=== PATIENT | male | born 1940 | race Caucasian/White ===

== ENCOUNTER 2019-05-23 21:51 | Observation (INO) | payer MEDICARE ==
[2019-05-23 22:00] VITALS: RESP 18
[2019-05-23] MEDS ORDERED: NITROGLYCERIN SL TABS 0.4 MG TAB SUBLINGUAL PRN (22:07)
--- NOTE | 2019-05-23 22:19 | ED ---
Chest Pain HPI - General Chief Complaint: Chest Pain Stated Complaint: cardiac issue-transfer Time Seen by Provider: 05/23/19 21:56 Source: patient, EMS, RN notes reviewed, old records reviewed Mode of arrival: EMS - History of Present Illness Initial Comments: This is a 78-year-old male here for evaluation patient is safe for evaluation regards to chest pain. Patient reports his chest pain with history of CAD patient currently has well-controlled chest pain. No recent travel history or sick contacts. No fever cough or congestion. Patient originally presented to [facility] and transferred to Hospital for evaluation MD Complaint: chest pain -: days(s) Pain Location: left chest Pain Radiation: LUE Severity: mild Quality: tightness, heaviness Consistency: constant Improves With: nothing Worsens With: nothing Anginal Symptoms: nausea Other Symptoms: cough, palpitations Treatments Prior to Arrival: none Review of Systems ROS Statement: Those systems with pertinent positive or pertinent negative responses have been documented in the HPI. ROS Other: All systems not noted in ROS Statement are negative. Past Medical History Past Medical History: Diabetes Mellitus, Hypertension History of Any Multi-Drug Resistant Organisms: None Reported Past Surgical History: Heart Catheterization With Stent, Hernia Repair Past Psychological History: No Psychological Hx Reported Smoking Status: Never smoker Past Alcohol Use History: None Reported Past Drug Use History: None Reported General Exam General appearance: alert, in no apparent distress Head exam: Present: atraumatic, normocephalic, normal inspection Eye exam: Present: normal appearance, PERRL, EOMI. Absent: scleral icterus, conjunctival injection, periorbital swelling ENT exam: Present: normal exam, mucous membranes moist Neck exam: Present: normal inspection. Absent: tenderness, meningismus, lymphadenopathy Respiratory exam: Present: normal lung sounds bilaterally. Absent: respiratory distress, wheezes, rales, rhonchi, stridor Cardiovascular Exam: Present: regular rate, normal rhythm, normal heart sounds. Absent: systolic murmur, diastolic murmur, rubs, gallop, clicks GI/Abdominal exam: Present: soft, normal bowel sounds. Absent: distended, tenderness, guarding, rebound, rigid Extremities exam: Present: normal inspection, full ROM, normal capillary refill. Absent: tenderness, pedal edema, joint swelling, calf tenderness Back exam: Present: normal inspection Neurological exam: Present: alert, oriented X3, CN II-XII intact Psychiatric exam: Present: normal affect, normal mood Skin exam: Present: warm, dry, intact, normal color. Absent: rash Course Vital Signs 05/23/19 05/23/19 21:53 22:00 Temperature 98.1 F Pulse Rate 59 L Pulse Rate [ 56 L Case Fitter ] Respiratory 18 Rate Blood Pressure 140/79 O2 Sat by Pulse 95 Oximetry - Reevaluation(s) Reevaluation #1: 05/23/19 22:17 Medical records reviewed as well as transfer paperwork is reviewed - Consultations Consultation #1: With Dr. Steiner for [facility] She was agreeable for admission Chest Pain MDM - MDM 78 mL to the ER for evaluation patient with today's exception in transfer for cardiac observation. Will be admitted for cardiology evaluation Disposition Clinical Impression: Chest pain Disposition: ADMITTED IP TO THIS HOSP Condition: Undetermined Instructions (If sedation given, give patient instructions): Chest Pain (ED) Is patient prescribed a controlled substance at d/c from ED?: No Referrals: Ang Anaya MD [Primary Care Provider] - 1-2 days
[2019-05-23] MEDS ORDERED: NON FORMULARY DRUG (Ubidecarenone [Co Q-10] 100 MG) PO SCH (23:45)
[2019-05-23] MEDS: metFORMIN 500 MG TAB PO SCH (23:51)
[2019-05-24 04:51] LABS: Cholesterol 99 mg/dL (<200); HDL Cholesterol 27 mg/dL (40-60); LDL Cholesterol,Calculated 42 mg/dL (0-99); Triglycerides 152 mg/dL (<150)
[2019-05-24 08:01] LABS: Glucose,Whole Blood 104 mg/dL (75-99)
--- NOTE | 2019-05-24 08:24 | P.CRDCN ---
History of Present Illness Consult reason: chest pain History of present illness: This is Dr. Bach dictating a consult on this patient The patient was interviewed and examined by me IMPRESSION / ASSESSMENT: Severe precordial chest discomfort lasting for several hours, normal cardiac enzymes serially, transferred from [facility] ER Pain was relieved with a combination of morphine and nitroglycerin but it took a while to resolve ECG shows [address] elevation inferolaterally consistent with an early re polarization abnormality, serial ECGs unchanged Hypertension Diabetes Coronary artery disease status post coronary stenting in 2011 at which time he had upper back pain No evidence for aortic dissection at this time on computed tomography scan PLAN: Continue antiplatelet therapy statins antihypertensive therapy and diabetes medications Exercise Cardiolite stress test tomorrow Hold beta blockers tomorrow morning HPI Patient presented to the hospital at [facility] complaining of severe midsternal chest discomfort that started when he was working in his garage and he was not doing anything strenuous. The pain lingered on was nonradiating and lasted for several hours before it was finally relieved with medications in the ER No loss of consciousness dizziness no tiredness or fatigue no undue shortness of breath ROS: No fever chills or rigors, no cough, phlegm or expectoration, no nausea, vomiting or diarrhea, no hematuria, dysuria, no musculoskeletal complaints, no strokes or seizures, no skin lesions. EXAMINATION: Normal heart rate and blood pressure, afebrile Breath sounds are clear no rhonchi no crackles Normal heart sounds normal S1 normal S2 no murmurs or gallop. Abdomen soft nontender Extremity is warm no edema No JVD REVIEW OF LABS, ECG & MEDICAL DATA Serial cardiac enzymes are normal LDL 42 triglycerides 152 HDL 27 Normal hemoglobin Past Medical History Past Medical History: Diabetes Mellitus, Hypertension History of Any Multi-Drug Resistant Organisms: None Reported Past Surgical History: Heart Catheterization With Stent, Hernia Repair Past Anesthesia/Blood Transfusion Reactions: No Reported Reaction Date of Last Stent Placement:: 2011 Smoking Status: Never smoker - Past Family History Mother Additional Family Medical History / Comment(s): melonoma, from Father Additional Family Medical History / Comment(s): Had a bad heart Medications and Allergies Home Medications Medication Instructions Recorded Confirmed Type Allopurinol [Zyloprim] 300 mg PO DAILY 05/23/19 05/23/19 History Aspirin EC [Ecotrin Low Dose] 81 mg PO HS 05/23/19 05/23/19 History Atorvastatin [Lipitor] 10 mg PO HS 05/23/19 05/23/19 History Bisoprolol/Hydrochlorothiazide 1 tab PO DAILY 05/23/19 05/23/19 History [Bisoprolol-Hctz 2.5-6.25 mg Tb] Erythromycin [Braden-Tab] 250 mg PO QID 05/23/19 05/23/19 History Ketoconazole 2% Cream [Nizoral 2%] 1 applic TOPICAL BID PRN 05/23/19 05/23/19 History Lisinopril 20 mg PO DAILY 05/23/19 05/23/19 History [place]-3 Fatty Acids/Fish Oil [Fish 1 cap PO DAILY 05/23/19 05/23/19 History Oil 1,000 mg Softgel] Propylene Glycol/Peg 400 [Systane 1 drop BOTH EYES BID 05/23/19 05/23/19 History Ultra 0.4-0.3% Eye Drp] Ubidecarenone [Co Q-10] 100 mg PO HS 05/23/19 05/23/19 History metFORMIN HCL 500 mg PO BID 05/23/19 05/23/19 History Allergies Allergy/AdvReac Type Severity Reaction Status Date / Time No Known Allergies Allergy Unverified 05/23/19 22:17 Physical Exam Vitals: Vital Signs Temp Pulse Pulse Pulse Resp BP BP 05/24/19 07:38 05/24/19 07:26 97.4 F L 56 L 18 128/66 05/24/19 04:00 97.6 F 54 L 18 111/52 05/24/19 00:00 18 05/23/19 23:43 97.6 F 55 L 18 173/73 05/23/19 22:00 56 L 05/23/19 21:53 98.1 F 59 L 18 140/79 Pulse Ox 05/24/19 07:38 96 05/24/19 07:26 95 05/24/19 04:00 95 05/24/19 00:00 05/23/19 23:43 95 05/23/19 22:00 05/23/19 21:53 95 Intake and Output 05/23/19 05/24/19 05/24/19 22:59 06:59 14:59 Other: # Voids 1 Weight 68.039 kg 68.039 kg Results Cardiac Enzymes 05/23/19 05/24/19 Range/Units 23:00 04:11 Troponin I <0.012 <0.012 (0.000-0.034) ng/mL Lipids 05/24/19 Range/Units 04:11 Triglycerides 152 H (<150) mg/dL Cholesterol 99 (<200) mg/dL HDL Cholesterol 27 L (40-60) mg/dL Current Medications Generic Name Dose Route Start Last Admin Trade Name Freq PRN Reason Stop Dose Admin Allopurinol 300 mg 05/24/19 09:00 Zyloprim PO DAILY [facility] Aspirin 325 mg 05/24/19 09:00 Aspirin PO DAILY [facility] Atorvastatin Calcium 80 mg 05/24/19 09:00 Lipitor PO DAILY [facility] Erythromycin Stearate 250 mg 05/24/19 09:00 Braden-Tab PO QID [facility] Lisinopril 20 mg 05/24/19 09:00 Zestril PO DAILY [facility] Metformin HCl 500 mg 05/23/19 23:45 05/23/19 23:51 Glucophage PO 500 mg BID [facility] Administration Metoprolol Tartrate 25 mg 05/24/19 09:00 Lopressor PO BID [facility] Nitroglycerin 0.4 mg 05/23/19 22:07 Nitrostat SUBLINGUAL Q5M PRN Chest Pain Non-Formulary Medication 1 drop 05/24/19 09:00 Propylene Glycol/Peg 400 [Systane Ultra 0.4-0.3% Eye Drp] BOTH EYES BID [facility] Intake and Output 05/23/19 05/24/19 05/24/19 22:59 06:59 14:59 Other: # Voids 1 Weight 68.039 kg 68.039 kg
[2019-05-24] MEDS: metFORMIN 500 MG TAB PO SCH ×2 (08:46→20:05)
[2019-05-24] MEDS: ATORVASTATIN 80 MG TAB PO SCH (08:46)
[2019-05-24] MEDS: METOPROLOL TARTRATE 25 MG TAB PO SCH ×2 (08:46→20:06)
[2019-05-24] MEDS: ASPIRIN 325 MG TAB PO SCH (08:46)
[2019-05-24] MEDS: LISINOPRIL 20 MG TAB PO SCH (08:46)
[2019-05-24] MEDS: ERYTHROMYCIN 250 MG TAB PO SCH ×4 (08:46→20:05)
[2019-05-24] MEDS: PEG BOTH EYES SCH ×2 (08:47→20:06)
[2019-05-24] MEDS: ALLOPURINOL 300 MG TAB PO SCH (08:47)
[2019-05-24] MEDS: PROPYLENE GLYCOL BOTH EYES SCH ×2 (08:47→20:06)
[2019-05-24] MEDS ORDERED: NON FORMULARY DRUG (Omega-3 Fatty Acids/Fish Oil [Fish Oil 1,000 Mg Softgel] 1 CAP) PO SCH (09:00)
[2019-05-24 11:41] LABS: Glucose,Whole Blood 141 mg/dL (75-99)
--- NOTE | 2019-05-24 15:01 | P.HPIM ---
History of Present Illness H&P Date: 05/24/19 Chief Complaint: Chest pain Mr. Spear is a 78-year-old male with a past medical history of hypertension, hyperlipidemia, type 2 diabetes mellitus, coronary artery disease status post stenting transferred from [facility] for evaluation of substernal chest pain. Patient states that he was having severe mid sternal chest pain that started when he was working in his garage. The pain was there for several hours, nonradiating, 6-8 out of 10, with mild difficulty in breathing. Patient denies having any cough or sick contacts. No fever chills or rigors. Patient denies having any headaches, blurring of vision or loss of consciousness. He denies having any dizziness. No orthopnea, PND or lower extremity swelling. Patient was transferred from [facility] as he was having ongoing chest pain. But currently the patient is chest pain-free, comfortably lying in bed. His is at the bedside. Review of Systems REVIEW OF SYSTEMS: PSYCH: no anxiety or depression NEURO:No c/o weakness of the extremties, No facial droop, No speech abnormalities. VASCULAR: no edema HEMATOLOGIC: No history of easy bleeding and bruising . No recent infections . RESPIRATORY: No cough, No SOB, No chest discomfort. IMMUNE: No infections INTEGUMENT: no rashes OPHTHALMOLOGIC: No blurry vision and no eye discharge : No dysuria or hematuria CARDIAC: As per HPI MUSCULOSKELETAL : No aches or pains in the joints or muscles. GI: No abdominal pain, Nausea or vomiting. No constipation or diarrhea. All 13 review of systems done and negative except for the ones mentioned above. Past Medical History Past Medical History: Diabetes Mellitus, Hypertension History of Any Multi-Drug Resistant Organisms: None Reported Past Surgical History: Heart Catheterization With Stent, Hernia Repair Past Anesthesia/Blood Transfusion Reactions: No Reported Reaction Date of Last Stent Placement:: 2011 Smoking Status: Never smoker - Past Family History Mother Additional Family Medical History / Comment(s): melonoma, from Father Additional Family Medical History / Comment(s): Had a bad heart Medications and Allergies Home Medications Medication Instructions Recorded Confirmed Type Allopurinol [Zyloprim] 300 mg PO DAILY 05/23/19 05/23/19 History Aspirin EC [Ecotrin Low Dose] 81 mg PO HS 05/23/19 05/23/19 History Atorvastatin [Lipitor] 10 mg PO HS 05/23/19 05/23/19 History Bisoprolol/Hydrochlorothiazide 1 tab PO DAILY 05/23/19 05/23/19 History [Bisoprolol-Hctz 2.5-6.25 mg Tb] Erythromycin [Braden-Tab] 250 mg PO QID 05/23/19 05/23/19 History Ketoconazole 2% Cream [Nizoral 2%] 1 applic TOPICAL BID PRN 05/23/19 05/23/19 History Lisinopril 20 mg PO DAILY 05/23/19 05/23/19 History [place]-3 Fatty Acids/Fish Oil [Fish 1 cap PO DAILY 05/23/19 05/23/19 History Oil 1,000 mg Softgel] Propylene Glycol/Peg 400 [Systane 1 drop BOTH EYES BID 05/23/19 05/23/19 History Ultra 0.4-0.3% Eye Drp] Ubidecarenone [Co Q-10] 100 mg PO HS 05/23/19 05/23/19 History metFORMIN HCL 500 mg PO BID 05/23/19 05/23/19 History Allergies Allergy/AdvReac Type Severity Reaction Status Date / Time No Known Allergies Allergy Unverified 05/23/19 22:17 Physical Exam Vitals: Vital Signs Temp Pulse Pulse Pulse Resp BP BP 05/24/19 12:00 58 L 18 05/24/19 11:46 97.6 F 58 L 18 151/77 05/24/19 08:00 56 L 18 05/24/19 07:38 05/24/19 07:26 97.4 F L 56 L 18 128/66 05/24/19 04:00 97.6 F 54 L 18 111/52 05/24/19 00:00 18 05/23/19 23:43 97.6 F 55 L 18 173/73 05/23/19 22:00 56 L 05/23/19 21:53 98.1 F 59 L 18 140/79 Pulse Ox 05/24/19 12:00 05/24/19 11:46 96 05/24/19 08:00 05/24/19 07:38 96 05/24/19 07:26 95 05/24/19 04:00 95 05/24/19 00:00 05/23/19 23:43 95 05/23/19 22:00 05/23/19 21:53 95 Intake and Output 05/23/19 05/24/19 05/24/19 22:59 06:59 14:59 Other: Voiding Method Toilet # Voids 1 2 Weight 68.039 kg 68.039 kg GEN. APPEARANCE: alert, in no apparent distress HEAD EXAM: atraumatic, normocephalic, normal inspection EYE EXAM: normal appearance, PERRL, EOMI. no pallor, no icterus ENT EXAM: normal exam, mucous membranes moist NECK EXAM: normal inspection. no thyromegaly or lymphadenopathy RESPIRATORY EXAM: normal lung sounds bilaterally. No wheezing or crackles CARDIOVASCULAR EXAM: regular rate, normal rhythm, normal heart sounds. GI/ABDOMINAL EXAM: soft, normal bowel sounds. no tenderness guarding, rebound or rigidity EXTREMITIES EXAM: no pedal edema NEUROLOGICAL EXAM: alert, oriented X3, no focal deficits PSYCHIATRIC EXAM: normal affect, normal mood SKIN EXAM: no rash Results Labs: Abnormal Lab Results - Last 24 Hours (Table) 05/24/19 05/24/19 05/24/19 Range/Units 04:11 08:00 11:39 POC Glucose (mg/dL) 104 H 141 H (75-99) mg/dL Triglycerides 152 H (<150) mg/dL HDL Cholesterol 27 L (40-60) mg/dL Thrombosis Risk Factor Assmnt - Choose All That Apply Each Risk Factor Represents 2 Points: Age 61-74 years Thrombosis Risk Factor Assessment Total Risk Factor Score: 2 Thrombosis Risk Factor Assessment Level: Low Risk Assessment and Plan Assessment: ASSESSMENT Chest pain Hypertension Hyperlipidemia Type 2 diabetes mellitus Coronary artery disease status post stenting PLAN: Patient had serial troponins less than 0.0122. As the patient has history of coronary artery disease along with hypertension and diabetes, he is scheduled for a exercise stress test tomorrow morning. Patient to be kept nothing by mouth tonight. Patient has been restarted on all his home medications. Further recommendations to follow depending on the progress of the patient.
[2019-05-24 16:42] LABS: Glucose,Whole Blood 112 mg/dL (75-99)
[2019-05-24 20:08] LABS: Glucose,Whole Blood 167 mg/dL (75-99)
[2019-05-25 06:35] LABS: Glucose,Whole Blood 115 mg/dL (75-99)
--- NOTE | 2019-05-25 10:47 | NM ---
EXAMINATION TYPE: NM stress cardiolite complete DATE OF EXAM: 05/25/2019 COMPARISON: NONE HISTORY: Pain TECHNIQUE: After the intravenous administration of 10.17 mCi Tc 99m Sestamibi - Rest images obtained 65 minutes post injection. The patient exercised using a CECILIO protocol and 1 minute prior to peak exercise was injected with 26.1 mCi Tc 99m Sestamibi - Stress images obtained 10 minutes post inject ion. FINDINGS: Targeted heart rate was achieved during performance of the study. Review of stress and rest SPECT alberta ges demonstrates no distinct perfusion abnormality. Gated analysis shows normal wall motion with an estimated left ventricular ejection fraction of 65 %. TID is calculated at 1.0, within normal limits IMPRESSION: No scintigraphic evidence for reversible ischemia
--- NOTE | 2019-05-25 10:50 | P.PN ---
Subjective This is a pleasant [age] male past medical history significant for coronary artery disease status post stent placement to the mid LAD 2012, diabetes mellitus, hypertension and dyslipidemia. He follows in the office with Dr. Becker. He is seen and examined in no acute distress. He has had no further symptoms of chest discomfort. He denies shortness of breath, dizziness or palpitations. Blood pressure 149/70 heart rate 58 afebrile maintaining oxygen saturation on room air. Currently maintained on metoprolol 25 mg twice a day, lisinopril 20 mg daily, atorvastatin 80 mg daily and aspirin 325 mg daily. GENERAL: Well-appearing, well-nourished and in no acute distress. NECK: Supple without JVD or thyromegaly. LUNGS: Breath sounds clear to auscultation bilaterally. Respiration equal and unlabored. No wheezes, rales or rhonchi. HEART: Regular rate and rhythm without murmurs, rubs or gallops. S1 and S2 heard. EXTREMITIES: Normal range of motion, no edema. No clubbing or cyanosis. Peripheral pulses intact. ASSESSMENT Precordial chest pain. An acute coronary event has been ruled out History of coronary artery disease status post PCI Hypertension Dyslipidemia Diabetes mellitus PLAN Decrease aspirin to 81 mg daily. Proceed with Cardiolite stress test as ordered. If there is any evidence of reversible ischemia we'll consider coronary angiography. If stress test is normal he may be discharged from a cardiac perspective. Follow-up with Dr. Becker in 2 weeks. Nurse Practitioner note has been reviewed, I agree with a documented findings and plan of care. Patient was seen and examined. Objective - Vital Signs Vital signs: Vital Signs Temp 97.3 F L 05/25/19 07:27 Pulse 58 L 05/25/19 07:27 Resp 18 05/25/19 07:27 BP 149/70 05/25/19 07:27 Pulse Ox 95 05/25/19 07:27 Intake & Output 05/24/19 05/25/19 05/25/19 18:59 06:59 18:59 Weight 68.039 kg Other: Voiding Method Toilet Toilet Toilet # Voids 3 1 - Labs Labs: Abnormal Lab Results - Last 24 Hours (Table) 05/24/19 05/24/19 05/24/19 Range/Units 11:39 16:41 20:05 POC Glucose (mg/dL) 141 H 112 H 167 H (75-99) mg/dL 05/25/19 Range/Units 06:33 POC Glucose (mg/dL) 115 H (75-99) mg/dL
[2019-05-25] MEDS: METOPROLOL TARTRATE 25 MG TAB PO SCH (10:53)
[2019-05-25] MEDS: ASPIRIN 325 MG TAB PO SCH (10:53)
[2019-05-25] MEDS: ALLOPURINOL 300 MG TAB PO SCH (10:54)
[2019-05-25] MEDS: LISINOPRIL 20 MG TAB PO SCH (10:54)
[2019-05-25] MEDS: PEG BOTH EYES SCH (10:54)
[2019-05-25] MEDS: ATORVASTATIN 80 MG TAB PO SCH (10:54)
[2019-05-25] MEDS: ERYTHROMYCIN 250 MG TAB PO SCH ×2 (10:54→12:40)
[2019-05-25] MEDS: PROPYLENE GLYCOL BOTH EYES SCH (10:54)
[2019-05-25 11:03] VITALS: BP 169/87; PULSE 66; TEMP 97.4
--- NOTE | 2019-05-25 11:40 | EST ---
EXERCISE STRESS DATE OF SERVICE: 05/25/2019 AGE: 78 SEX: Male HT: 66" WT: 150 pounds PROTOCOL: Cardiolite Moises STAGE: III DURATION OF EXERCISE: 8 minutes HEART RATE REST: 58 BLOOD PRESSURE REST: 153/82 MAXIMUM HEART RATE ACHIEVED: 124 MAXIMUM BLOOD PRESSURE: 208/74 85% MPHR: 122 100% MPHR: 143 METS: 9.9 INDICATIONS: Chest pain. CLINICAL INFORMATION: STRESS DATA: Heart rate 58, pressure 153/82 mmHg. Baseline EKG showed sinus mechanism. The patient exercised on the treadmill according to Moises protocol for a total of 8 minutes and achieved 9.9 METs. Max heart rate was 24, which is about 87% of maximum predicted heart rate. Maximum blood pressure was 208/74 mmHg. Clinically the patient did not have any symptoms of chest pain or chest discomfort during the testing or on recovery. The EKG showed about 0.5 mm to [address]-segment changes in response to exercise. CONCLUSION: 1. Good exercise tolerance. 2. Mild EKG changes in response to exercise. 3. Please follow up on the Cardiolite portion on separate report from Radiology Department. MMODL / IJN: [id number] /
[2019-05-25 11:46] LABS: Glucose,Whole Blood 167 mg/dL (75-99)
--- NOTE | 2019-05-25 20:11 | P.DS ---
Providers Date of admission: 05/23/19 22:07 Expected date of discharge: 05/25/19 Attending physician: Abdirahman Steiner Consults: 05/23/19 22:07 Consult Physician Urgent Consulting Provider: Jaleesa Becker Consult Reason/Comments: cp Do you want consulting provider notified?: Yes Primary care physician: Ang Garcia [facility] Course: Mr. Spear is a 78-year-old male with a past medical history of hypertension, hyperlipidemia, type 2 diabetes mellitus, coronary artery disease status post stenting transferred from [facility] for evaluation of substernal chest pain. Patient states that he was having severe mid sternal chest pain that started when he was working in his garage. The pain was there for several hours, nonradiating, 6-8 out of 10, with mild difficulty in breathing. Patient denies having any cough or sick contacts. No fever chills or rigors. Patient denies having any headaches, blurring of vision or loss of consciousness. He denies having any dizziness. No orthopnea, PND or lower extremity swelling. Patient was transferred from [facility] as he was having ongoing chest pain. Hospital course - Patient had serial troponins less than 0.0123 . As the patient has history of coronary artery disease along with hypertension and diabetes, he is scheduled for a exercise stress test tomorrow. Patient's Cardiolite stress test was negative for any reversible ischemia. The estimated left ventricular ejection fraction is 65% . So he was cleared by cardiology to be discharged. Vital Signs Temp 97.3 F L 05/25/19 07:27 Pulse 58 L 05/25/19 07:27 Resp 18 05/25/19 07:27 BP 149/70 05/25/19 07:27 Pulse Ox 95 05/25/19 07:27 Intake & Output 05/24/19 05/25/19 05/25/19 18:59 06:59 18:59 Weight 68.039 kg Other: Voiding Method Toilet Toilet Toilet # Voids 3 1 GEN. APPEARANCE: alert, in no apparent distress HEENT : No pallor , no icterus RESPIRATORY EXAM: normal lung sounds bilaterally. No wheezing or crackles CARDIOVASCULAR EXAM: regular rate, normal rhythm, normal heart sounds. GI/ABDOMINAL EXAM: soft, normal bowel sounds. no tenderness guarding, rebound or rigidity EXTREMITIES EXAM: no pedal edema NEUROLOGICAL EXAM: alert, oriented X3, no focal deficits DISCHARGE DIAGNOSIS Chest pain Hypertension Hyperlipidemia Type 2 diabetes mellitus Coronary artery disease status post stenting Follow up : Follow up with PCP and Cardiology in 3-5 days. Patient Condition at Discharge: Undetermined Plan - Discharge Summary New Discharge Prescriptions: Continue Erythromycin [Braden-Tab] 250 mg PO QID Propylene Glycol/Peg 400 [Systane Ultra 0.4-0.3% Eye Drp] 1 drop BOTH EYES BID Bisoprolol/Hydrochlorothiazide [Bisoprolol-Hctz 2.5-6.25 mg Tb] 1 tab PO DAILY Ubidecarenone [Co Q-10] 100 mg PO HS [place]-3 Fatty Acids/Fish Oil [Fish Oil 1,000 mg Softgel] 1 cap PO DAILY Aspirin EC [Ecotrin Low Dose] 81 mg PO HS Allopurinol [Zyloprim] 300 mg PO DAILY metFORMIN HCL 500 mg PO BID Lisinopril 20 mg PO DAILY Ketoconazole 2% Cream [Nizoral 2%] 1 applic TOPICAL BID PRN PRN Reason: Rash Atorvastatin [Lipitor] 10 mg PO HS Discharge Medication List Allopurinol [Zyloprim] 300 mg PO DAILY 05/23/19 [History] Aspirin EC [Ecotrin Low Dose] 81 mg PO HS 05/23/19 [History] Atorvastatin [Lipitor] 10 mg PO HS 05/23/19 [History] Bisoprolol/Hydrochlorothiazide [Bisoprolol-Hctz 2.5-6.25 mg Tb] 1 tab PO DAILY 05/23/19 [History] Erythromycin [[place]-Tab] 250 mg PO QID 05/23/19 [History] Ketoconazole 2% Cream [Nizoral 2%] 1 applic TOPICAL BID PRN 05/23/19 [History] Lisinopril 20 mg PO DAILY 05/23/19 [History] [place]-3 Fatty Acids/Fish Oil [Fish Oil 1,000 mg Softgel] 1 cap PO DAILY 05/23/19 [History] Propylene Glycol/Peg 400 [Systane Ultra 0.4-0.3% Eye Drp] 1 drop BOTH EYES BID 05/23/19 [History] Ubidecarenone [Co Q-10] 100 mg PO HS 05/23/19 [History] metFORMIN HCL 500 mg PO BID 05/23/19 [History] Follow up Appointment(s)/Referral(s): Jaleesa Becker MD [STAFF PHYSICIAN] - 06/12/19 3:30 pm (at the [place] office.) Ang Anaya MD [Primary Care Provider] - 1-2 days Patient Instructions/Handouts: Chest Pain (ED) Discharge Disposition: HOME SELF-CARE
[2019-05-26] MEDS ORDERED: ASPIRIN 81 MG PO SCH (09:00)
== END 2019-05-25 13:52 | disposition home or self-care (01) ==
LOC: EC 21:51 → 1SOBS 22:07
PROVIDERS: ADMIT Hospitalist; ATTEND Hospitalist
DX: R07.89 Other chest pain (principal); R07.2 Precordial pain; I10 Essential (primary) hypertension; E78.5 Hyperlipidemia, unspecified; E11.9 Type 2 diabetes mellitus without complications; I25.10 Atherosclerotic heart disease of native coronary artery without angina pectoris; R94.39 Abnormal result of other cardiovascular function study; Z95.5 Presence of coronary angioplasty implant and graft; Z98.890 Other specified postprocedural states; Z79.899 Other long term (current) drug therapy; Z79.82 Long term (current) use of aspirin; Z79.84 Long term (current) use of oral hypoglycemic drugs; Z80.8 Family history of malignant neoplasm of other organs or systems; Z82.49 Family history of ischemic heart disease and other diseases of the circulatory system
CPT/HCPCS: 93005; 99285; 94760; 93017; 80061; 84484 ×2; 78452; G0378 ×3; A9500

== ENCOUNTER 2023-07-05 10:10 | Day surgery (SDC) | payer MEDICARE ==
[2023-07-05] MEDS ORDERED: LIDOCAINE 1% (10MG/ML) FOR IV START INTRADERMA PRN (10:19)
[2023-07-05] MEDS ORDERED: LACTATED RINGERS 1,000 ML IV SCH (10:19)
[2023-07-05 10:31] VITALS: TEMP 97
[2023-07-05 10:41] LABS: Glucose,Whole Blood 123 mg/dL (70-110)
[2023-07-05] MEDS ORDERED: PROPOFOL 10 MG/ML 20 ML VIAL IV ONE (11:28)
[2023-07-05] MEDS ORDERED: LIDOCAINE 2% (PF) 20 MG/ML 5 ML VIAL ONE (11:28)
--- NOTE | 2023-07-05 11:38 | P.PCN ---
Date of Procedure: 07/05/23 Procedure(s) Performed: BRIEF HISTORY: Patient is a 83-year-old, pleasant, white male scheduled for an upper endoscopy as a part of evaluation of in the mid dysphagia to solids for the last 1 year duration.. PROCEDURE PERFORMED: Esophagogastroduodenoscopy with biopsy. PREOPERATIVE DIAGNOSIS: Intermittent dysphagia to solids of 1 year duration. IV sedation per anesthesia. PROCEDURE: After informed consent was obtained, the patient was brought into the endoscopy unit. IV sedation was administered by Anesthesia under continuous monitoring. Initially the Olympus GIF-140 video endoscope was inserted into the mouth. Esophagus intubated without any difficulty. There was mild tightness at the cricopharyngeus suggestive of bright dysfunction but no obvious Zenker's diverticulum identified. The scope was gradually advanced into the stomach and duodenum and carefully examined. The bulb and the second part of the duodenum appeared normal. The scope at this time was withdrawn to the stomach, adequately insufflated with air, and upon careful examination, mucosa of the antrum, body, cardia and the fundus appeared normal. The scope was then withdrawn into the esophagus. all hiatal hernia noted. The GE junction was located at 39 cm from the incisors. The esophagus appeared normal. There were no erosions or ulcerations seen, biopsies were done from the distal esophagus and the patient tolerated the procedure well. IMPRESSION: 1. 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 2. Small hiatal hernia.. RECOMMENDATIONS: The findings of this examination were discussed with the patient well as his family.. He was advised to follow with the biopsy results. Advised on soft diet. Follow up in the office if he has any worsened symptoms.
[2023-07-05 12:08] VITALS: BP 150/83; PULSE 58; RESP 16
== END 2023-07-05 12:12 | disposition home or self-care (01) ==
LOC: ORWHC2ENDO 10:10
PROVIDERS: ATTEND Internal Medicine Gastroenterology
DX: K44.9 Diaphragmatic hernia without obstruction or gangrene (principal); I25.10 Atherosclerotic heart disease of native coronary artery without angina pectoris; I10 Essential (primary) hypertension; E78.5 Hyperlipidemia, unspecified; E11.9 Type 2 diabetes mellitus without complications; Z79.84 Long term (current) use of oral hypoglycemic drugs; Z79.899 Other long term (current) drug therapy; Z85.828 Personal history of other malignant neoplasm of skin
CPT/HCPCS: 88305; 43239; J2704; J2001

== ENCOUNTER → 2024-12-01 | Outpatient (CLI) | payer MEDICARE ==
[2024-12-01 15:47] LABS: NT-Pro-B-Type Natriuretic Pept 203 pg/mL (0-450)
[2024-12-01 17:02] LABS: Blood Urea Nitrogen 28.8 mg/dL (9.0-27.0); Carbon Dioxide 23.6 mmol/L (21.6-31.8); Chloride 102 mmol/L (96-109); Potassium 4.6 mmol/L (3.5-5.5); Sodium 141 mmol/L (135-145)
== END | disposition home or self-care (01) ==
LOC: LABWHC1 08:55
PROVIDERS: ATTEND Internal Medicine Interventional Cardiology
DX: R60.0 Localized edema (principal)
CPT/HCPCS: 36415; 80051; 82565; 83880; 84520